=== PATIENT | female | born 1950 | race Caucasian/White ===

== ENCOUNTER 2021-08-31 13:12 | Outpatient (REF) | payer MEDICARE, SELFPAY ==
[2021-08-31 15:09] LABS: Syphilis Screen Nonreactive (Nonreactive)
[2021-08-31 15:15] LABS: Vitamin B12 187 pg/mL (200-900)
[2021-09-02 13:12] LABS: Lyme Abs Screen <0.90 index
== END 2021-08-31 13:13 | disposition home or self-care (01) ==
LOC: HO.LAB 13:12
PROVIDERS: Visit Provider Psychiatry & Neurology Neurology
DX: F03.91 Unspecified dementia, unspecified severity, with behavioral disturbance (principal)
CPT/HCPCS: 36415; 82607; 86617; 86618; 86780

== ENCOUNTER 2021-09-06 11:31 | Outpatient (REF) | payer MEDICARE, SELFPAY ==
--- NOTE | ~2021-09-06 | MR_ITS ---
EXAMINATION: MRI OF THE BRAIN WITHOUT CONTRAST CLINICAL INFORMATION: Unspecified dementia and behavioral disturbance. COMPARISON: There are no prior studies available for comparison.. TECHNIQUE: MRI of the brain was obtained using routine sequences without contrast. FINDINGS: No diffusion abnormalities are identified to suggest an acute or subacute infarct. No mass effect or midline shift is seen. There is commensurate prominence of the ventricles and sulci consistent with moderate diffuse volume loss. There are extensive areas of increased T2 and FLAIR signal in the periventricular and subcortical white matter, most consistent with chronic microvascular ischemic disease. There are lacunar infarcts in the periventricular white matter. No extra-axial fluid collections are seen. The brainstem and cerebellum are normal. No pathologic magnetic susceptibility artifact is identified on the gradient refocused acquisition. The craniovertebral junction, marrow signal, and midline structures are normal. There is a degenerative anterolisthesis of C3 on C4 and there is marked narrowing of intervertebral disc height at C4-C5, C5-C6 and C6-C7. There is reversal of the normal cervical lordosis. The major intracranial flow-voids at the level of the [place] are preserved. The dural venous sinus flow-voids are maintained. There is mild fluid at the left mastoid tip. There is mild mucoperiosteal thickening in the inferior left maxillary sinus and in the bilateral ethmoid sinuses. MR/MR head/brain wo con IMPRESSION: 1. There are no acute bleeds or territorial infarcts. No masses are demonstrated. 2. There are chronic microvascular ischemic changes and lacunar infarcts. There is diffuse volume loss.
== END 2021-09-06 11:32 | disposition home or self-care (01) ==
LOC: HO.MRI 11:31
PROVIDERS: Visit Provider Psychiatry & Neurology Neurology
DX: F03.91 Unspecified dementia, unspecified severity, with behavioral disturbance (principal)
CPT/HCPCS: 70551

== ENCOUNTER 2024-12-03 09:52 | Outpatient (AMB) | payer MEDICARE, SELFPAY ==
--- NOTE | 2024-12-03 10:06 | MHC.OFFVIS ---
Intake Visit Reasons: 6 Months/ dementia Allergies No Known Allergies Allergy (Verified 11/26/24 07:56) Medication List - Last Reconciled 12/03/24 by Manuel Paris MD cyanocobalamin (vitamin B-12) 1,000 mcg IM QMONTH donepezil 10 mg PO BEDTIME lisinopril 20 mg PO DAILY memantine 10 mg PO BID sertraline 25 mg PO DAILY HPI Comments Details: 74 years old woman with dementia with behavioral problems, probably of multifactorial origin including Alzheimer and vascular disease. MRI of brain revealed moderate diffuse atrophy and moderate microvascular ischemic changes. She is presenting with cognitive impairment and caregiver support management. Her Alzheimer's Disease has progressed to a moderate to severe stage, characterized by significant memory lapses and necessitating 24/7 supervision. Instances such as leaving the water running highlight the dangers posed by her decreased cognitive function, highlighting the need for constant care. Though she sleeps well, her ability to perform simple tasks independently has diminished significantly. Additionally, the patient's appetite remains subdued, aligning with anxiety and depression symptoms being managed pharmaceutically, though adjustments have been made as she is no longer on mirtazapine. Her anxiety induces anxiety, particularly during attempts to manage daily activities or when her caregivers are unavailable. No recent escalations in these symptoms have been described beyond those typically expected from her condition. She is being managed on lisinopril, along with memantine and donepezil for her cognitive function, with a reported stabilization in these medications indicating a maintenance phase in her medical and cognitive care plan. [facility] Medical History (Updated 12/03/24 @ 10:09 by Manuel Paris MD) Alzheimer disease H/O alcohol abuse Multifactorial dementia Cerebral microvascular disease Anxiety Alcohol abuse Dementia with behavioral disturbance Review of Systems Const Details: - Neurologic: Reports memory lapses, difficulty with simple tasks, anxiety. Denies hallucinations. - Psychiatric: Reports anxiety and subdued mood. - Cardiovascular: Denies issues beyond known hypertension. - Gastrointestinal: Reports subdued appetite. Physical Exam Neuro Other: Mental Status: - Intellect/cognition: Moderate to severe cognitive impairment evidenced by memory lapses and difficulty with simple tasks. - Mood: Subdued - Sensorium & orientation: Anxiety regarding difficulty in performing tasks. Cranial Nerves: CN II: Visual amato full to confrontation, visual acuity intact. CN III, IV, : Pupils equal, round, reactive to light and accommodation. Extraocular movements are normal. CN V: Facial sensation is normal. CN VII: Facial movements symmetrical. CN VIII: Hearing intact to bedside conversation is normal. CN IX, X: Palate elevates symmetrically. CN XI: Shoulder shrug and head turn symmetrical. CN XII: Tongue midline without atrophy or fasciculations. Extrapyramidal: Full facial expressions and blinking. No rigidity. Movements are appropriate with no tremor or abnormality. Speech: Normal; no dysarthria or tremor. Assessment & Plan Assessment & Plan (1) Alzheimer dementia: Comment: MRI brain WO at [facility] in August 2021: mod diff atrophy, mod MVD. Code(s): G30.9 - Alzheimer's disease, unspecified; F02.80 - Dementia in other diseases classified elsewhere, unspecified severity, without behavioral disturbance, psychotic disturbance, mood disturbance, and anxiety Category: Medical Qualifiers: Alzheimer's disease onset: late onset Dementia severity: moderate Dementia behavioral or psychological symptom: with other behavioral disturbance Qualified Code(s): G30.1 - Alzheimer's disease with late onset; F02.B18 - Dementia in other diseases classified elsewhere, moderate, with other behavioral disturbance Plan: During the visit, I discussed the patient's current cognitive status and care needs with her and her caregiver. We confirmed that the patient's condition, identified as moderate to severe cognitive impairment due to Alzheimer's Disease, necessitates ongoing 24/7 supervision for her safety. Treatment with memantine and donepezil continues to provide management of her symptoms. We addressed her anxiety and depression history, with recent adjustments including the discontinuation of mirtazapine, and reinforced the need for engagement and oversight in managing emotional and cognitive challenges. The current stable regimen for hypertension with lisinopril was reviewed, without additional interventions required. We discussed engaging visiting nurses as part of her support network for day-to-day management, and I advised on considering respite care for her primary caregiver to prevent burnout. We agreed to follow up in six months to reassess her condition and care needs. (2) Cerebral microvascular disease: Code(s): I67.89 - Other cerebrovascular disease Category: Medical (3) Multifactorial dementia: Code(s): F03.90 - Unspecified dementia, unspecified severity, without behavioral disturbance, psychotic disturbance, mood disturbance, and anxiety Category: Medical Plan Impression: Moderate to severe multifactorial dementia with significant anxiety and confusion Rec: a: Sertraline 25mg a day b: Donepezil 10mg a day c: Memantine 10mg bid d: Needs 24/ supervision Coding Level of Care Code Est Pt Level 4 (97152) Diagnoses Moderate late onset Alzheimer's dementia with other behavioral disturbance G30.1; F02.B18 Alzheimer's disease onset: late onset Dementia severity: moderate Dementia behavioral or psychological symptom: with other behavioral disturbance Cerebral microvascular disease I67.89 Multifactorial dementia F03.90
--- OUTSIDE RECORDS SUMMARY | 2024-12-03 10:32 | XMS_ITS ---
Author Organization [facility] Address [address] [place] [address] Phone Care Team Providers Care Ceramic Research Engineer Name Role Phone Bipin Dowd DO Primary Care Provider [phone] Program of [facility]-Inclusive Care for the Elderly Status:Initial Criteria Met (Enrolling) Start date:10/31/2024 Enrollment reason:[facility] Related social drivers of health:Housing Instability, TH Health Literacy, Financial Risk, Transportation, Social Isolation, Food Risk Overview This episode will track PACE documentation. Case Team Name Relationship Phone Bee Conklin Early Childhood Specialist(Responsibl e Staff) [phone] Continued Care and Services Coordination
--- OUTSIDE RECORDS SUMMARY | 2024-12-03 10:32 | XMS_ITS | Clinical Summary ---
Author Organization [facility] Address [address] [place] [address] Phone Care Team Providers Care Senior Scientist Name Role Phone Bipin Dowd DO Primary Care Provider [phone] Allergies No known active allergies Medications No known medications Surgical History Surgery Date Site/Laterality Comments ROTATOR CUFF REPAIR 2013 Left PROCEDURE: HISTORICAL ROTATOR CUFF REPAIR COLONOSCOPY 02/09/2022 PROCEDURE: HISTORICAL COLONOSCOPY; COMMENT: tubular adenomas, diverticulosis, internal hemorrhoids Medical History Medical History Date Comments Wrist fracture 2016 DX:Wrist fractur e; COMMENT: Left Hypertension Depression Anxiety Family History Medical History Relation Name Comments Heart attack Father quadruple bypas s Brain cancer Maternal Grandmother Breast cancer Mother Other: heart problem Paternal Grandfather Other: memory issues Paternal Grandfather Relation Name Status Comments Brother Alive Father Maternal Grandmother Mother Paternal Grandfather Sister Alive Social History Tobacco Use Types Packs/Day Years Used Date Smoking Tobacco: Former Smokeless Tobacco: Never Alcohol Use Standard Drinks/Week Comments Yes 0 (1 standard drink = 0.6 oz pur e alcohol) Comments Unknown Sex and Gender Information Value Date Recorded Sex Assigned at Female 07/28/2024 10:28 AM EDT Legal Sex Female 7:24 AM EST Gender Identity Female 07/28/2024 10:28 AM EDT Sexual Orientation Straight 07/28/2024 10 :28 AM EDT Obstetrics History Last Filed Vital Signs Vital Sign Reading Time Taken Comments Blood Pressure 147/60 07/28/2024 1:08 PM EDT Pulse 61 07/28/2024 1:08 PM EDT Temperature 36.4 C (97.5 F) 07/28/2024 1:08 PM EDT Respiratory Rate 20 07/28/2024 1:08 PM EDT Oxygen Saturation 98% 07/28/2024 1:08 PM EDT Inhaled Oxygen Concentration - - Weight 45.4 kg (100 lb) 07/28/2024 9:37 AM EDT Height 157.5 cm (5' 2 ) 07/28/2024 9:37 AM EDT Body Mass Index 18.29 07/28/2024 9:37 AM EDT Plan of Treatment Health Maintenance Due Date Last Done Comments Hepatitis A Vaccines (1 of 2 - Risk 2-dose series) 1967 Zoster Vaccines (1 of 2) 1998 Cholesterol Screening (Lipid Panel) 03/19/2022 Colorectal Cancer Screening: Colonoscopy 03/19/2022 Falls Risk Assessment 03/19/2022 Hepatitis C Screening 03/19/2022 Social Influencers of Health Screening 03/19/2022 Pneumococcal Vaccine: 50+ Years (2 of 2 - PPSV23) 07/11/2023 07/10/2022 Depression Screening 04/09/2024 COVID-19 Vaccine ( season) 2024 12/24/2023, 12/29/2022, 02/20/2022, Additional history exists Influenza Vaccine (#1) 2024 , 12/29/2022, 01/24/2022, Additional history exists Hypertension/CHF/CAD Annual BMP Blood Test 07/28/2025 07/28/2024, 07/26/2024 DTaP,Tdap,and Td Vaccines (2 - Td or Tdap) 05/02/2031 05/02/2021 Osteoporosis Screening (Bone Density Screening) 08/13/2031 08/12/2021 Breast Cancer Screening Discontinued 08/28/19, 08/28/2023, 08/18/2022, Additional history exists RSV Immunization Adult Patients Completed 12/24/2023 HIB Vaccines Aged Out No longer eligi ble based on patient's age to complete this topic HPV Vaccines Aged Out No longer eligi ble based on patient's age to complete this topic Hepatitis B Vaccines Aged Out No long er eligible based on patient's age to complete this topic IPV Vaccines Aged Out No longer eligi ble based on patient's age to complete this topic MMR Vaccines Aged Out No longer eligi ble based on patient's age to complete this topic Meningococcal ACWY Vaccine Aged Out N o longer eligible based on patient's age to complete this topic Meningococcal B Vaccine Aged Out No l onger eligible based on patient's age to complete this topic RSV Immunization Patients Under 20 months Aged Out No longer eligible based on patient's age to complete this topic Varicella Vaccines Aged Out No longer eligible based on patient's age to complete this topic Procedures Procedure Name Priority Date/Time Associated Diagnosis Comments COMPREHENSIVE METABOLIC PANEL STAT 07/28/2024 9:55 AM EDT SCREENING MAMMOGRAPHY BI 2-VIEW BREAST INC CAD Routine 08/28/2023 1:46 PM EDT Encounter for screening mammogram for malignant neoplasm of breast DXA BONE DENSITY STUDY 1+ SITS AXIAL SKEL Routine 08/12/2021 2:16 PM EDT Encounter for screening for osteoporosis from Last 3 Months or Most Recently Relevant to Health Maintenance Results * Comprehensive metabolic panel (07/28/2024 9:55 AM EDT) Sodium 138 133 - 145 mmol/L LAB CHEMISTRY METHOD 07/28/2024 10:57 AM [facility] Potassium 3.8 3.5 - 5.5 mmol/L LAB CHEMISTRY METHOD 07/28/2024 10:57 AM [facility] Chloride 103 96 - 110 mmol/L LAB CHEMISTRY METHOD 07/28/2024 10:57 AM [facility] CO2 26 21 - 32 mmol/L LAB CHEMISTRY METHOD 07/28/2024 10:57 AM [facility] Anion Gap 9 3 - 11 LAB CHEMISTRY METHOD 07/28/2024 10:57 AM [facility] Glucose 94 70 - 100 mg/dL LAB CHEMISTRY METHOD 07/28/2024 10:57 AM [facility] BUN 14 5 - 25 mg/dL LAB CHEMISTRY METHOD 07/28/2024 10:57 AM [facility] Creatinine 0.83 0.50 - 1.10 mg/dL LAB CHEMISTRY METHOD 07/28/2024 10:57 AM [facility] eGFR 73 >=60 mL/min/1. 73m2 LAB CHEMISTRY METHOD 07/28/2024 10:57 AM [facility] Comment:Calculation based on the Chronic Kidney Disease Epidemiology Collaboration (CKD-EPI) equation refit without adjustment for race. BUN/Creatinine Ratio 16.9 LAB CHEMISTRY METHOD 07/28/2024 10:57 AM [facility] Calcium 9.5 8.5 - 10.5 mg/dL LAB CHEMISTRY METHOD 07/28/2024 10:57 AM [facility] AST (SGOT) 27 10 - 42 unit/L LAB CHEMISTRY METHOD 07/28/2024 10:57 AM [facility] ALT (SGPT) 17 10 - 60 unit/L LAB CHEMISTRY METHOD 07/28/2024 10:57 AM [facility] Alkaline Phosphatase 94 42 - 121 unit/L LAB CHEMISTRY METHOD 07/28/2024 10:57 AM [facility] Total Protein 7.0 6.0 - 8.0 g/dL LAB CHEMISTRY METHOD 07/28/2024 10:57 AM [facility] Albumin 4.0 3.2 - 5.0 g/dL LAB CHEMISTRY METHOD 07/28/2024 10:57 AM [facility] Total Bilirubin 0.8 0.0 - 1.4 mg/dL LAB CHEMISTRY METHOD 07/28/2024 10:57 AM [facility] Blood Venous blood specimen / Unknown Venipuncture / Unknown 07/28/2024 9:55 AM EDT 07/28/2024 10:08 AM EDT Barron Lozano MD LAB BLOOD ORDERABLES Final [facility]u lt [facility] [address] [place] [address], [place] [phone] * SCREENING MAMMOGRAPHY BI 2-VIEW BREAST INC CAD (08/28/2023 1:46 PM EDT) Anatomical Region Laterality Modality Radiographic Disha ging 08/18/2022 2:20 PM EDT Narrative 08/29/2023 11:20 AM EDT This is a summary report. The complete report is available in the patient's medical record. If you cannot access the medical record, please contact the sending organization for a detailed fax or copy. Full field digital screening tomosynthesis mammography, reviewed with CAD and compared to previous. The breast tissue is heterogeneously dense, limiting sensitivity. No suspicious mass, architectural distortion or suspicious calcifications are identified. IMPRESSION: : Dense breast tissue, limiting the sensitivity of mammography. No mammographic evidence of malignancy. BIRADS 1-Negative; N. 5 year breast cancer risk assessment N/A Lifetime breast cancer risk assessment N/A Breast cancer risk category Breast cancer risk not assessed Procedure Note Orlando Vivas MD - 11/26/2023 This is a summary report. The complete report is available in thepatient's medical record. If you cannot access the medical record, pleasecontact the sending organization for a detailed fax or copy. Full field digital screening tomosynthesis mammography, reviewed with CADand compared to previous. The breast tissue is heterogeneously dense,limiting sensitivity. No suspicious mass, architectural distortion orsuspicious calcifications are identified. IMPRESSION: : Dense breast tissue, limiting the sensitivity of mammography. Nomammographic evidence of malignancy. BIRADS 1-Negative; N. 5 year breast cancer risk assessment N/A Lifetime breast cancer risk assessment N/A Breast cancer risk category Breast cancer risk not assessed Bipin Dowd DO IMG XR PROCEDURES Final Result * DXA BONE DENSITY STUDY 1+ SITS AXIAL SKEL (08/12/2021 2:16 PM EDT) Anatomical Region Laterality Modality Bone Densitometr y 05/02/2021 3:02 PM EST Narrative 08/12/2021 3:23 PM EDT BONE DENSITY Lumbar Spine T-score is -0.7 (SD relative to 20-29 y/o adult) Z-score is +0.6 (SD relative to age matched peers) This is normal by criteria defined by the WHO. Left Hip T-score is -2.7 Z-score is -0.7 This is consistent with osteoporosis by criteria defined by the WHO. Impression: Based on the World Health Organization criteria, Nancy Ackerman should be classified as having osteoporosis. The [facility] Department of Internal Medicine recommends using National Osteoporosis Foundation (NOF) guidelines in treatment decisions related to osteoporosis. NOF guidelines suggest considering treatment for postmenopausal women and men aged 50 or older presenting with the following: History of hip or vertebral fracture. T-score less than or equal to -2.5 (DXA) at the femoral neck, total hip, or spine, after appropriate evaluation to exclude secondary causes. Low bone mass (T-score between -1.0 and -2.5 at the femoral neck or spine) AND a 10-year probability of a hip fracture greater than or equal to 3% OR a 10-year probability of a major osteoporosis-related fracture greater than or equal to 20% based on the [place]-adapted WHO algorithm Please note that all treatment decisions require clinical judgment and consideration of individual patient factors, including patient preferences, co-morbidities, previous drug use, risk factors not captured in the FRAX model (e.g., frailty, falls, vitamin D deficiency, increased bone turnover, interval significant decline in bone density) and possible under- or over-estimation of fracture risk by FRAX. Procedure Note Dariela Espinoza MD - 03/28/2022 BONE DENSITY Lumbar Spine T-score is -0.7 (SD relative to 20-29 y/o adult) Z-score is +0.6 (SD relative to age matched peers) This is normal by criteria defined by the WHO. Left Hip T-score is -2.7 Z-score is -0.7 This is consistent with osteoporosis by criteria defined by the WHO. Impression: Based on the World Health Organization criteria, Nancy Ackerman should beclassified as having osteoporosis. The [facility] Department of Internal Medicine recommendsusing National Osteoporosis Foundation (NOF) guidelines in treatmentdecisions related to osteoporosis. NOF guidelines suggest consideringtreatment for postmenopausal women and men aged 50 or older presentingwith the following: History of hip or vertebral fracture. T-score less than or equal to -2.5 (DXA) at the femoral neck, total hip,or spine, after appropriate evaluation to exclude secondary causes. Low bone mass (T-score between -1.0 and -2.5 at the femoral neck or spine)AND a 10-year probability of a hip fracture greater than or equal to 3% ORa 10-year probability of a major osteoporosis-related fracture greaterthan or equal to 20% based on the [place]-adapted WHO algorithm Please note that all treatment decisions require clinical judgment andconsideration of individual patient factors, including patientpreferences, co-morbidities, previous drug use, risk factors not capturedin the FRAX model (e.g., frailty, falls, vitamin D deficiency, increasedbone turnover, interval significant decline in bone density) and possibleunder- or over-estimation of fracture risk by FRAX. Serenity Persaud [facility] IM DXA PROCEDURES Final Resu lt from Last 3 Months or Most Recently Relevant to Health Maintenance Insurance [facility] MEDICARE MEDICARE Care Teams Senior Scientist Relationship Specialty Start Date End Date Bipin Dowd DO PCP - General Internal Medicine 03/28/21
== END 2024-12-03 15:24 | disposition home or self-care (01) ==
LOC: HO.HSM 09:52
PROVIDERS: PCP Student in an Organized Health Care Education/Training Program; Referring Provider Internal Medicine; Visit Provider Psychiatry & Neurology Neurology
DX: G30.1 Alzheimer's disease with late onset (principal); F02.B18 Dementia in other diseases classified elsewhere, moderate, with other behavioral disturbance; I67.89 Other cerebrovascular disease; F03.90 Unspecified dementia, unspecified severity, without behavioral disturbance, psychotic disturbance, mood disturbance, and anxiety
CPT/HCPCS: 99214

== ENCOUNTER → 2024-12-03 09:52 | Outpatient (BNVA) | payer MEDICARE, SELFPAY | PROVIDERS: PCP Student in an Organized Health Care Education/Training Program; Referring Provider Internal Medicine; Visit Provider Psychiatry & Neurology Neurology | DX: G30.1 Alzheimer's disease with late onset (principal); F02.B18 Dementia in other diseases classified elsewhere, moderate, with other behavioral disturbance; I67.89 Other cerebrovascular disease | CPT/HCPCS: 99212 ==